=== PATIENT | male | born 1990 | race Two or more races ===

== ENCOUNTER 2021-12-18 17:50 | Outpatient (CLI) | payer OTHER ==
--- NOTE | 2021-12-19 11:21 | XRAY Report ---
PROCEDURE: Shoulder 3 View LT INDICATIONS: STRAIN OF MUSCLES AND TENDONS OF THE ROTATOR CUFF TECHNIQUE: 4 views of the shoulder were acquired. COMPARISON: None. FINDINGS: Bones: Joint space is maintained. No degenerative changes. No fracture or dislocation. No suspicious lytic or blastic osseous lesion. Soft tissues: No suspicious soft tissue calcifications. IMPRESSION: Normal study. Reviewed by: Nolberto Bejarano MD on 12/19/2021 11:19 AM PDT Approved by: Nolberto Bejarano MD on 12/19/2021 11:19 AM PDT Station ID: [id number]
== END 2021-12-18 17:51 | disposition home or self-care (01) ==
LOC: DI 17:50
PROVIDERS: ATTEND Emergency Medicine
DX: S46.012A Strain of muscle(s) and tendon(s) of the rotator cuff of left shoulder, initial encounter (principal)